=== PATIENT | female | born 1990 | race Caucasian/White ===

== ENCOUNTER 2017-03-26 15:12 | Emergency (ER) | payer OTHER ==
[~2017-03-26] VITALS: Ht 154.9 cm; Wt 56.7 kg
--- NOTE | 2017-03-26 15:32 | NUR ---
Presents self to ed due to left flank pain radiating to abdomen, 03/06. Patient is afebrile. Denies n/v/d. Patient afebrile. vss.
[2017-03-26] MEDS ORDERED: IV NS 0.9% 1,000 ML ONE (15:38)
[2017-03-26 15:40] LABS: BASOPHILS # (AUTO) 0.1 /CMM (0.0-0.2); BASOPHILS % (AUTO) 0.8 % (0.0-2.0); EOSINOPHILS # (AUTO) 0.1 /CMM (0.0-0.7); EOSINOPHILS % (AUTO) 0.9 % (0.0-6.0); HEMATOCRIT 40 % (33-45); HEMOGLOBIN 13.5 g/dL (11.5-14.8); LYMPHOCYTES # (AUTO) 2.1 /CMM (0.8-4.8); LYMPHOCYTES % (AUTO) 25.9 % (20.0-44.0); MEAN CORPUSCULAR HEMOGLOBIN 28 PG (26.0-33.0); MEAN CORPUSCULAR HGB CONC 33 g/dl (31.0-36.0); MEAN CORPUSCULAR VOLUME 85 fL (82-100); MONOCYTES # (AUTO) 0.5 /CMM (0.1-1.30); MONOCYTES % (AUTO) 6.3 % (2.0-12.0); NEUTROPHILS # (AUTO) 5.2 /CMM (1.8-8.9); NEUTROPHILS % (AUTO) 66.1 % (43.0-81.0); PLATELET COUNT (AUTO) 250 /CMM (150-450); RDW COEFFICIENT OF VARIATION 12.9 (11.5-15.0); RED BLOOD CELL COUNT(AUTO) 4.77 MIL/uL (4.0-5.2)
[2017-03-26 15:42] LABS: APPEARANCE,URINE Turbid (CLEAR); BLOOD, URINE Moderate Ery/uL (NEGATIVE); COLOR,URINE Yellow (YELLOW); KETONES,URINE 15 (NEGATIVE); LEUKOCYTE ESTERASE ,URINE Small (NEGATIVE); NITRITE, URINE Negative (NEGATIVE); PH,URINE 5.5 (5.0-8.0); PROTEIN,URINE 100 mg/dl (NEGATIVE); UGLUCOSE Negative (NEGATIVE); UROBILINOGEN,URINE 0.2 EU/dL (0.2)
[2017-03-26 15:50] LABS: BILIRUBIN,URINE SMALL (NEGATIVE)
[2017-03-26 15:52] LABS: WBC,URINE 80-100 /HPF (0-3)
[2017-03-26 15:53] LABS: ADD URINE CULTURE NO; BACTERIA,URINE Few /HPF (None Seen); SQUAMOUS EPITHELIAL CELL,UR Few /HPF (None Seen)
[2017-03-26 15:54] LABS: CALCIUM, SERUM 8.8 mg/dL (8.5-10.1); CREATININE 0.8 mg/dL (0.6-1.3); POTASSIUM 4.2 mmol/L (3.5-5.1)
[2017-03-26] MEDS ORDERED: KETOROLAC TROMETHAMINE INJ 30 MG/ML VIAL IV ONE (16:00)
[2017-03-26] MEDS ORDERED: IV NS 0.9% 1,000 ML BAG IV ONE (16:00)
[2017-03-26 16:01] LABS: BILIRUBIN,DIRECT 0.1 mg/dL (0.0-0.2); BILIRUBIN,TOTAL 0.4 mg/dL (0.2-1.0); TOTAL PROTEIN, SERUM 7.7 g/dL (6.4-8.2)
--- NOTE | 2017-03-26 16:07 | NUR ---
pt was taken to ct
[2017-03-26] MEDS ORDERED: CEFTRIAXONE 1GM BAG (ER ONLY) 50 ML IV ONE (16:30)
[2017-03-26] MEDS ORDERED: CEFTRIAXONE 1GM BAG (ER ONLY) 1 GM/50 ML PIGGYBACK IV ONE (16:30)
[2017-03-26 17:26] VITALS: BP 132/80
--- NOTE | 2017-03-28 11:59 | NUR ---
PATIENT DISCHARGED WITH KEFLEX PO AND IS APPROPRIATE PER DR NGUYỄN.
--- NOTE | 2017-03-28 12:03 | NUR ---
ATTEMPTED TO CALL [facility] AT [phone] AND [phone], LEFT A MESSAGE TO CALL BACK TO GIVE [facility] C/S RESULT
--- NOTE | 2017-03-28 12:06 | NUR ---
CALL BACK FROM [facility], PATIENT IS DOING WELL AND IMPROVING WITH MEDICATIONS,ADVISED TO F/U W/ PCP AND RETURN FOR WORSENING OF SX
--- NOTE | 2017-03-28 12:26 | NUR ---
GENER RECEIVED CALL BACK FROM PT, HE TOLD HER TO CONTINUE TAKING HER ANTIBIOTICS AND TO FOLLOW UP WITH HER PCP OR TO COME BACK HERE IF HER SYMPTOMS COME BACK OR GET WORSE
== END 2017-03-26 17:27 | disposition home or self-care (01) ==
LOC: ER 15:16
DX: N10 Acute pyelonephritis (principal)
CPT/HCPCS: 36415; 80048-TC; 80076-TC; 81000-TC; 83690-TC; 84703-TC; 85025-TC; 87086-TC; 87186-TC; A4606; J0696; J7030; Z7610